=== PATIENT | male | born 1985 | race Caucasian/White ===

== ENCOUNTER 2019-12-07 11:01 | Emergency (ER) | payer BC | END 2019-12-07 11:38 | disposition home or self-care (01) | LOC: MADERS 11:01 | DX: J01.90 Acute sinusitis, unspecified (principal); B96.89 Other specified bacterial agents as the cause of diseases classified elsewhere; G89.29 Other chronic pain; F17.210 Nicotine dependence, cigarettes, uncomplicated | CPT/HCPCS: 99283 ==

== ENCOUNTER 2020-05-17 09:41 | Emergency (ER) | payer BC | END 2020-05-17 10:06 | disposition home or self-care (01) | LOC: MADERS 09:41 | DX: M54.2 Cervicalgia (principal); G89.29 Other chronic pain; M25.511 Pain in right shoulder; M25.512 Pain in left shoulder; Z87.891 Personal history of nicotine dependence; Z79.899 Other long term (current) drug therapy; Z79.891 Long term (current) use of opiate analgesic | CPT/HCPCS: 99281 ==

== ENCOUNTER 2020-11-03 07:53 | Emergency (ER) | payer BC ==
[2020-11-04 03:30] LABS: SARS-CoV-2 PCR by NAA DETECTED (NotDetected)
== END 2020-11-03 09:55 | disposition home or self-care (01) ==
LOC: MADERS 07:53
DX: U07.1 COVID-19 (principal); Z87.891 Personal history of nicotine dependence
CPT/HCPCS: 87804; 99283; U0003; U0005

== ENCOUNTER 2021-02-21 09:04 | Emergency (ER) | payer BC | END 2021-02-21 09:30 | disposition home or self-care (01) | LOC: MADERS 09:04 | DX: J01.90 Acute sinusitis, unspecified (principal); Z87.891 Personal history of nicotine dependence | CPT/HCPCS: 99283 ==

== ENCOUNTER 2021-04-11 15:44 | Emergency (ER) | payer BC ==
[2021-04-11 17:15] LABS: Bilirubin Negative (Negative); Blood, Urine Negative (Negative); Clarity Clear (Clear); Glucose, Urine (Dipstick) Negative (Negative); Ketone, Urine Negative (Negative); Leukocyte Negative (Negative); Nitrite Negative (Negative); Protein, Urine (Dipstick) Negative (Neg-Trace); Urobilinogen 0.2 mg/dL (Less than 2)
== END 2021-04-11 16:42 | disposition short-term general hospital (02) ==
LOC: MADERS 15:44
DX: N50.811 Right testicular pain (principal); N50.812 Left testicular pain; Z87.891 Personal history of nicotine dependence; Z79.899 Other long term (current) drug therapy
CPT/HCPCS: 81003; 99284

== ENCOUNTER 2023-02-19 12:56 | Emergency (ER) | payer BC ==
[2023-02-19] MEDS ORDERED: Lidocaine 1% (PF) 30 ML VIAL ONE (13:56)
[2023-02-19] MEDS ORDERED: Bacitracin 1 PK ONE (14:32)
== END 2023-02-19 15:22 | disposition home or self-care (01) ==
LOC: MADERS 12:56
DX: S61.216A Laceration without foreign body of right little finger without damage to nail, initial encounter (principal); F17.210 Nicotine dependence, cigarettes, uncomplicated; W26.8XXA Contact with other sharp object(s), not elsewhere classified, initial encounter
CPT/HCPCS: 12002; J2001